=== PATIENT | male | born 1985 | race Caucasian/White ===

== ENCOUNTER 2019-10-14 13:50 | Inpatient (IN) | payer OTHER ==
[~2019-10-14] VITALS: Ht 177.8 cm; Wt 107.7 kg
[2019-10-14] VITALS (184 sets, daily range): BP systolic 111–136; BP diastolic 70–101; PULSE 71–114; TEMP 98–98.1; O2SAT 94–100
[2019-10-14] MEDS ORDERED: ALLEGRA 180MG180 MG PO (14:00)
[2019-10-14] MEDS ORDERED: NAPROSYN500 MG PO (14:12)
[2019-10-14 14:21] LABS: BASO # 0.1 (0.0-0.2); EOS # 0.1 (0.0-0.7); EOS % 1.3 % (0-4.0); GRAN # 4.4 (1.4-6.5); GRAN % 51.6 % (42.2-75.2); HEMATOCRIT 40.9 % (42.0-52.0); HEMOGLOBIN 14.1 g/dl (13.5-18.0); LYMPH # 3.2 (1.2-3.4); LYMPH % 37.5 % (20.0-51.0); MEAN CELL VOLUME 92 fl (80.0-100.0); MEAN CORPUSCULAR HEMOGLOBIN 32 pg (27.0-31.0); MEAN CORPUSCULAR HGB CONC 35 g/dl (33.0-37.0); MEAN PLATELET VOLUME 11.7 fl (7.4-10.4); MONO # 0.7 (0.1-0.6); MONO % 8.3 % (1.7-9.3); PLATELET COUNT 188 K/mm3 (130-400); RED BLOOD COUNT 4.47 M/mm3 (4.20-5.60)
[2019-10-14 14:24] LABS: PROTHROMBIN TIME 11.3 SECONDS (9.7-12.8)
[2019-10-14 14:38] LABS: ALANINE AMINOTRANSFERASE 29 U/L (4-49); ALBUMIN 4.6 gm/dL (3.5-5.0); ALKALINE PHOSPHATASE 117 U/L (50-136); ANION GAP 16 mmol/L (7-16); AST,SGOT 40 U/L (15-37); BILIRUBIN,TOTAL 1.1 mg/dL (0.0-1.0); BLOOD UREA NITROGEN 13 mg/dL (9-20); CALCIUM 8.9 mg/dL (8.4-10.2); CARBON DIOXIDE 18 mmol/L (22-30); CHLORIDE 102 mmol/L (98-107); CREATININE, serum 1.03 (0.66-1.25); GLUCOSE 99 mg/dL (74-106); LIPASE 236 U/L (23-300); SODIUM 137 mmol/L (137-145); TOTAL PROTEIN 7.8 gm/dL (6.4-8.2)
[2019-10-14 14:52] LABS: POTASSIUM 2.7 mmol/L (3.4-5.0); TROPONIN-I < 0.012 ng/mL (0.000-0.035)
--- NOTE | 2019-10-14 16:35 | NUR ---
Report received from Keisha VAIL in ED at 1532 Patient arrived via stretcher at 1610, able to move self to bed Cardizem titrated to [address] Forrest verbal request at 1630, noticed patient was in NSR at 1635-ECG performed to confirm rhythm changed, dr notified. Patient still complaining it is a little hard to breath but SpO2 on RA is 96-100%. Patient states he has a headache that is behind his right eye, down his neck, and across the back of his head.
[2019-10-14] MEDS ORDERED: FLONASEALLERGY (17:48)
[2019-10-14] MEDS ORDERED: FIORICET 325 MG1 TA1 PO (17:50)
--- NOTE | 2019-10-14 19:45 | NUR ---
Assessment complete; VS stable. Reports feeling unable to take fully take a deep breath. Otherwise denies shortness of breath, pain or any distress at this time. Call light left within reach; will continue to monitor.
[2019-10-15] VITALS (391 sets, daily range): BP systolic 102–136; BP diastolic 65–78; PULSE 66–81; TEMP 97.9–98.1; O2SAT 79–100
[2019-10-15 07:33] LABS: BASO # 0.1 (0.0-0.2); BASO % 1.3 % (0.0-2.0); EOS # 0.1 (0.0-0.7); EOS % 1.7 % (0-4.0); GRAN # 2.9 (1.4-6.5); GRAN % 55.2 % (42.2-75.2); HEMATOCRIT 41.3 % (42.0-52.0); HEMOGLOBIN 13.7 g/dl (13.5-18.0); LYMPH # 1.7 (1.2-3.4); LYMPH % 32.8 % (20.0-51.0); MEAN CELL VOLUME 93 fl (80.0-100.0); MEAN CORPUSCULAR HEMOGLOBIN 31 pg (27.0-31.0); MEAN CORPUSCULAR HGB CONC 33 g/dl (33.0-37.0); MEAN PLATELET VOLUME 12.2 fl (7.4-10.4); MONO # 0.5 (0.1-0.6); MONO % 8.6 % (1.7-9.3); PLATELET COUNT 169 K/mm3 (130-400); RED BLOOD COUNT 4.46 M/mm3 (4.20-5.60); REDCELL DISTRIBUTION WIDTH-CV 12.2 % (11.5-14.5)
[2019-10-15 07:44] LABS: CALCIUM 8.7 mg/dL (8.4-10.2); CREATININE, serum 0.96 (0.66-1.25); MAGNESIUM 2.3 mg/dL (1.6-2.3); POTASSIUM 4.1 mmol/L (3.4-5.0)
[2019-10-15] MEDS ORDERED: LOPRESSOR 225 MG/TAB PO (10:28)
[2019-10-15] MEDS ORDERED: ASPIRIN E.C. 8181 MG PO (10:28)
[2019-10-15] MEDS ORDERED: ATIVAN 0.50.5 MG/TAB PO (12:49)
[2019-10-15] MEDS ORDERED: K-DUR 10 MEQ T10 MEQ PO (13:01)
--- NOTE | 2019-10-15 13:40 | NUR ---
PT discharged to home via private vehicle. PT stable. No complaints at this time will call with further questions.
== END 2019-10-15 13:40 | disposition home or self-care (01) | DRG 309 ==
LOC: COL.ER 13:50 → ICU 14:56
PROVIDERS: Emergency Medicine; ADMIT Student in an Organized Health Care Education/Training Program
DX: I48.91 Unspecified atrial fibrillation (principal); E87.2 Acidosis; E87.6 Hypokalemia; G43.909 Migraine, unspecified, not intractable, without status migrainosus; F17.200 Nicotine dependence, unspecified, uncomplicated; F41.9 Anxiety disorder, unspecified; F43.10 Post-traumatic stress disorder, unspecified
CPT/HCPCS: 99222-AI; 99239; J1650; J2060; J3010; J3475; J3480; J7030; Q9967

== ENCOUNTER → 2020-08-31 | Outpatient (CLI) | payer OTHER ==
[~2020-08-31] MED LIST: ALLEGRA 180MG180 MG PO; ASPIRIN E.C. 8181 MG PO; ATIVAN 0.50.5 MG/TAB PO; CARTIA XT120 MG PO; FIORICET 325 MG1 TA1 PO; FLONASEALLERGY NAS; K-DUR 10 MEQ T10 MEQ PO; LOPRESSOR 225 MG/TAB PO; NAPROSYN500 MG PO; PROAIR HFA0.09 MG/AC IH; RT ADVAIR HFA 2312 G IH; TAMBOCOR50 MG PO; VALIUM 5MG T5 MG/TAB PO
== END ==
LOC: MHCPAIN 08:08
DX: M47.812 Spondylosis without myelopathy or radiculopathy, cervical region (principal); M54.12 Radiculopathy, cervical region
CPT/HCPCS: G0463

== ENCOUNTER → 2020-09-13 | Outpatient (CLI) | payer OTHER | LOC: MHCPAIN 13:29 | DX: M47.812 Spondylosis without myelopathy or radiculopathy, cervical region (principal); M54.12 Radiculopathy, cervical region | CPT/HCPCS: J1100; Q9967 ==

== ENCOUNTER 2020-10-04 15:51 | Emergency (ER) | payer OTHER ==
[~2020-10-04] VITALS: Ht 177.8 cm; Wt 111.4 kg
[~2020-10-04 15:51] MED LIST changes: -CARTIA XT120 MG PO; -PROAIR HFA0.09 MG/AC IH; -RT ADVAIR HFA 2312 G IH; -VALIUM 5MG T5 MG/TAB PO
[2020-10-04 17:42] VITALS: TEMP 99
[2020-10-04 17:43] LABS: ALANINE AMINOTRANSFERASE 41 U/L (4-49); ALBUMIN 4.4 gm/dL (3.5-5.0); ALKALINE PHOSPHATASE 115 U/L (50-136); ANION GAP 8 mmol/L (7-16); AST,SGOT 51 U/L (15-37); BILIRUBIN,TOTAL 0.8 mg/dL (0.0-1.0); BLOOD UREA NITROGEN 8 mg/dL (9-20); CALCIUM 9.2 mg/dL (8.4-10.2); CARBON DIOXIDE 28 mmol/L (22-30); CHLORIDE 102 mmol/L (98-107); CREATININE, serum 1.05 (0.66-1.25); GLUCOSE 104 mg/dL (74-106); POTASSIUM 3.9 mmol/L (3.4-5.0); SODIUM 138 mmol/L (137-145); TOTAL PROTEIN 8.5 gm/dL (6.4-8.2)
[2020-10-04] MEDS ORDERED: VALIUM 5MG T5 MG/TAB PO (17:46)
[2020-10-04] MEDS ORDERED: CARTIA XT120 MG PO (17:46)
[2020-10-04] MEDS ORDERED: PROAIR HFA0.09 MG/AC IH (17:46)
[2020-10-04] MEDS ORDERED: RT ADVAIR HFA 2312 G IH (17:47)
[2020-10-04 17:50] LABS: BASO # 0.1 (0.0-0.2); BASO % 1.1 % (0.0-2.0); EOS % 0.3 % (0-4.0); GRAN # 4.4 (1.4-6.5); GRAN % 68.7 % (42.2-75.2); HEMOGLOBIN 15.1 g/dl (13.5-18.0); LYMPH # 1.3 (1.2-3.4); LYMPH % 21.1 % (20.0-51.0); MEAN CELL VOLUME 88 fl (80.0-100.0); MEAN CORPUSCULAR HEMOGLOBIN 31 pg (27.0-31.0); MEAN CORPUSCULAR HGB CONC 35 g/dl (33.0-37.0); MEAN PLATELET VOLUME 11.5 fl (7.4-10.4); MONO # 0.5 (0.1-0.6); MONO % 8.3 % (1.7-9.3); PLATELET COUNT 219 K/mm3 (130-400); RED BLOOD COUNT 4.88 M/mm3 (4.20-5.60); REDCELL DISTRIBUTION WIDTH-CV 11.9 % (11.5-14.5)
[2020-10-04 17:58] LABS: TROPONIN-I < 0.012 ng/mL (0.000-0.035)
[2020-10-04 20:17] VITALS: BP 132/70; PULSE 80
== END 2020-10-04 20:17 | disposition home or self-care (01) ==
LOC: COL.ER 15:51
PROVIDERS: Personal Emergency Response Attendant
DX: R00.2 Palpitations (principal); F17.290 Nicotine dependence, other tobacco product, uncomplicated; Z86.711 Personal history of pulmonary embolism
CPT/HCPCS: Q9967

== ENCOUNTER → 2020-10-05 | Outpatient (CLI) | payer OTHER ==
[~2020-10-05] MED LIST changes: +CARTIA XT120 MG PO; +PROAIR HFA0.09 MG/AC IH; +RT ADVAIR HFA 2312 G IH; +VALIUM 5MG T5 MG/TAB PO
== END ==
LOC: COL.PUL 09:52
DX: Z87.09 Personal history of other diseases of the respiratory system (principal)

== ENCOUNTER → 2020-10-19 | Outpatient (CLI) | payer OTHER | LOC: MHCPAIN 12:39 | DX: M47.812 Spondylosis without myelopathy or radiculopathy, cervical region (principal); M54.2 Cervicalgia; M25.512 Pain in left shoulder | CPT/HCPCS: G0463 ==

== ENCOUNTER → 2021-03-31 | Outpatient (CLI) | payer OTHER | LOC: COL.PUL 13:00 | DX: R06.02 Shortness of breath (principal); Z87.09 Personal history of other diseases of the respiratory system | CPT/HCPCS: J7674 ==

== ENCOUNTER 2022-04-03 01:53 | Emergency (ER) | payer OTHER ==
[~2022-04-03] VITALS: Ht 177.8 cm; Wt 109.1 kg
[2022-04-03 01:58] VITALS: TEMP 97.9
[2022-04-03 02:23] LABS: BASO # 0.1 K/mm3 (0.0-0.2); EOS # 0.2 K/mm3 (0.0-0.7); EOS % 2.3 % (0.0-4.0); GRAN # 2.7 K/mm3 (1.4-6.5); GRAN % 39.3 % (42.2-75.2); HEMATOCRIT 40.4 % (42.0-52.0); HEMOGLOBIN 14.2 g/dl (13.5-18.0); LYMPH # 3.1 K/mm3 (1.2-3.4); MEAN CELL VOLUME 87 fl (80.0-100.0); MEAN CORPUSCULAR HEMOGLOBIN 31 pg (27-31); MEAN CORPUSCULAR HGB CONC 35 g/dl (33.0-37.0); MEAN PLATELET VOLUME 11.5 fl (7.4-10.4); MONO # 0.8 K/mm3 (0.1-0.6); PLATELET COUNT 193 K/mm3 (130-400); RED BLOOD COUNT 4.65 M/mm3 (4.20-5.60); REDCELL DISTRIBUTION WIDTH-CV 11.9 % (11.5-14.5)
[2022-04-03 02:36] LABS: ALANINE AMINOTRANSFERASE 46 U/L (0-55); ALKALINE PHOSPHATASE 100 U/L (40-150); ANION GAP 13 mmol/L (7-16); AST,SGOT 35 U/L (5-34); BILIRUBIN,TOTAL 0.6 mg/dL (0.2-1.2); BLOOD UREA NITROGEN 10 mg/dL (9-21); CALCIUM 9.1 mg/dL (8.4-10.2); CARBON DIOXIDE 21 mmol/L (22-29); CHLORIDE 106 mmol/L (98-107); CREATININE, serum 0.93 mg/dL (0.72-1.25); GLUCOSE 112 mg/dL (70-99); LIPASE 62 U/L (8-78); POTASSIUM 3.3 mmol/L (3.5-4.5); SODIUM 140 mmol/L (136-145); TOTAL PROTEIN 7.5 gm/dL (6.2-8.1)
[2022-04-03 02:43] LABS: TROPONIN-I < 0.010 ng/mL (0.00-0.033)
[2022-04-03 04:08] VITALS: BP 116/81; PULSE 97
[2022-04-03] MEDS ORDERED: ATIVAN 1MG T1 MG/TAB PO (04:12)
== END 2022-04-03 04:26 | disposition home or self-care (01) ==
LOC: COL.ER 01:53
PROVIDERS: Personal Emergency Response Attendant
DX: R00.2 Palpitations (principal); R10.10 Upper abdominal pain, unspecified; R00.0 Tachycardia, unspecified; R07.89 Other chest pain
CPT/HCPCS: Q9967